=== PATIENT | male | born 1950 ===

== ENCOUNTER 2017-12-02 22:02 | Inpatient (IN) | payer MEDICARE, OTHER ==
[~2017-12-02] VITALS: Ht 177.8 cm; Wt 110.1 kg
[2017-12-02 23:19] VITALS: BP 117/77
[2017-12-02 23:30] VITALS: BP 94/80
[2017-12-02] MEDS ORDERED: ACETAMINOPHEN 500 MG TAB (TYLENOL) PO PRN (23:30)
[2017-12-02] MEDS ORDERED: ONDANSETRON 4 MG/2 ML (SDV) Z0FRAN IVP PRN (23:30)
[2017-12-02 23:45] VITALS: BP 116/91
[2017-12-02] MEDS ORDERED: NS IV 1000 ML 1,000 ML ONE (23:51)
[2017-12-02] MEDS ORDERED: NS (IVPB) 100 ML ONE (23:51)
[2017-12-03] VITALS (28 sets, daily range): BP systolic 80–135; BP diastolic 41–107
[2017-12-03] MEDS: NS IV 1000 ML 1,000 ML IV SCH ×3 (00:06→20:14)
[2017-12-03] MEDS: DILTIAZEM IV FOR DRIP 125 MG in NS (IVPB) 100 ML IV SCH ×2 (00:07→10:43)
[2017-12-03 03:53] LABS: BASOPHILS % (AUTO) 1 % (0-10); EOSINOPHILS # (AUTO) 0.2 10^3/uL (0.0-0.3); EOSINOPHILS % (AUTO) 3 % (0-10); HEMATOCRIT 39 % (40-54); HEMOGLOBIN 13.3 G/DL (13.3-17.7); LYMPHOCYTES # (AUTO) 1.1 X 10^3 (1.0-4.0); LYMPHOCYTES % (AUTO) 21 % (12-44); MEAN CORPUSCULAR HEMOGLOBIN 29 PG (25-34); MEAN CORPUSCULAR HGB CONC 34 G/DL (32-36); MEAN CORPUSCULAR VOLUME 86 FL (80-99); MEAN PLATELET VOLUME 10.8 FL (7.4-10.4); MONOCYTES # (AUTO) 0.7 X 10^3 (0.0-1.0); MONOCYTES % (AUTO) 12 % (0-12); NEUTROPHILS # (AUTO) 3.5 X 10^3 (1.8-7.8); NEUTROPHILS % (AUTO) 63 % (42-75); PLATELET COUNT 258 10^3/uL (130-400); RED BLOOD COUNT 4.54 10^6/uL (4.35-5.85); RED CELL DISTRIBUTION WIDTH 14.5 % (10.0-14.5); WHITE BLOOD COUNT 5.6 10^3/uL (4.3-11.0)
[2017-12-03 04:06] LABS: INR 1.1 (0.8-1.4); PROTHROMBIN TIME PATIENT 13.9 SEC (12.2-14.7)
[2017-12-03 04:15] LABS: BUN/CREATININE RATIO 30; CALCIUM 8.8 MG/DL (8.5-10.1); CARBON DIOXIDE 22 MMOL/L (21-32); CHLORIDE 106 MMOL/L (98-107); CREATININE SERUM 0.86 MG/DL (0.60-1.30); GFR ESTIMATED > 60; GLUCOSE 95 MG/DL (70-105); POTASSIUM 3.8 MMOL/L (3.6-5.0); SODIUM 139 MMOL/L (135-145)
--- NOTE | 2017-12-03 05:57 | Pulmonary Consultation ---
History of Present Illness History of Present Illness Date of Consultation 12/03/17 05:51 Time Seen by Provider: 12:47 Date of Admission History of Present Illness 67yo with hx of Afib RVR recently moved here from [facility]. PT was started on Eliquis about 3 months ago after being diagnosed with Afib however secondary to cost patient has not been taking Eliquis. He is admitted from ED after being diagnosed with afib rvr progressive SOB, and chest discomfort. I am consulted for iCU management. Allergies and Home Medications Allergies Coded Allergies: atorvastatin (Verified Allergy, Severe, Joint Pain, 12/02/17) Home Medications Apixaban 5 Mg Tablet, 5 MG PO BID Prescribed by: LETHA RAY on 12/03/17 1149 Aspirin 81 Mg Tablet.dr, 81 MG PO DAILY, (Reported) Diltiazem HCl 180 Mg Cap.er.24h, 180 MG PO DAILY Prescribed by: BERRY PAGE on 12/04/17 1339 Insulin NPH Human Isophane 100 Unit/1 Ml Vial, 50 UNIT SQ HS, (Reported) Lisinopril/Hydrochlorothiazide 1 Each Tablet, 1 TAB PO BID, (Reported) Metformin HCl 850 Mg Tablet, 850 MG PO TID, (Reported) Sertraline HCl 50 Mg Tablet, 25 MG PO DAILY, (Reported) TAKES 1/2 (50MG) TABLET Simvastatin 40 Mg Tablet, 40 MG PO HS, (Reported) Past Knyozbt-Hadrfz-Ciydps Hx Patient Social History Alcohol Use: Rarely Uses Number of Drinks Today: 1 Alcohol Beverage of Choice: Beer Recreational Drug Use: No Smoking Status: Former Smoker Type Used: Cigarettes Recent Foreign Travel: No Contact w/Someone Who Travel: No Recent Infectious Disease Expo: No Recent Hopitalizations: No Immunizations Up To Date PED Vaccines UTD: No Seasonal Allergies Seasonal Allergies: No Past Medical History Surgeries: Yes (Uvula removal) Respiratory: Yes Sleep Apnea Currently Using CPAP: No Currently Using BIPAP: No Cardiac: Yes Neurological: No Sexually Transmitted Disease: No HIV/AIDS: No Genitourinary: Yes Prostate Problems Gastrointestinal: No Musculoskeletal: Yes Arthritis Endocrine: Yes Are Your Blood Sugars Over 250: No HEENT: No Loss of Vision: Denies Cancer: No Psychosocial: Yes Anxiety Integumentary: No Blood Disorders: No Adverse Reaction/Blood Tranf: No Family Medical History FH: CVA (cerebrovascular accident) 19 FATHER, , Onset:Unknown FH: lupus G8 SISTER, , Onset:Unknown FH: renal cell carcinoma 19 FATHER, , Onset:Unknown Varicose veins G8 BROTHER, Onset:Unknown Review of Systems Time Seen by Provider: 12:54 Sepsis Event Evaluation Height, Weight, BMI Height: 5'10.00" Weight: 253lbs. 5.0oz. 114.438900zq; 36.3 BMI Method: Exam Exam Vital Signs Date Time Temp Pulse Resp B/P (MAP) Pulse Ox O2 Delivery O2 Flow Rate FiO2 12/03/17 05:00 100 7 113/86 (95) Room Air 12/03/17 04:00 113 14 110/72 (85) Room Air 12/03/17 03:45 97.4 12/03/17 03:40 99 Room Air 12/03/17 03:00 109 18 121/74 (90) 94 Room Air 12/03/17 02:00 135 20 80/41 (54) 94 Room Air 12/03/17 01:00 129 12/03/17 01:00 129 20 105/74 (84) 97 Room Air 12/03/17 00:45 140 18 111/85 (94) 96 Room Air 12/03/17 00:30 113 26 100/67 (78) 97 Room Air 12/03/17 00:21 97 Room Air 12/03/17 00:15 115 13 114/93 (100) 97 Room Air 12/03/17 00:11 104 16 116/91 (99) Room Air 12/03/17 00:10 105 12/03/17 00:07 144 12/03/17 00:00 104 16 116/68 (84) 96 Room Air 12/03/17 00:00 97 Room Air 12/02/17 23:45 102 16 116/91 (99) 96 Room Air 12/02/17 23:30 118 11 94/80 (85) 97 Room Air 12/02/17 23:19 98.1 130 17 117/77 (90) 94 Room Air I & O 12/03/17 07:00 Intake Total 150 ml Output Total 545 ml Balance -395 ml Height & Weight Height: 5'10.00" Weight: 253lbs. 5.0oz. 114.649264vp; 36.3 BMI Method: General Appearance: No Apparent Distress, WD/WN HEENT: PERRL/EOMI Neck: Full Range of Motion, Normal Inspection Respiratory: Chest Non Tender, No Accessory Muscle Use, No Respiratory Distress , Decreased Breath Sounds Cardiovascular: Irregularly Irregular Gastrointestinal: normal bowel sounds, non tender Extremity: Normal Capillary Refill Neurologic/Psychiatric: Alert, Oriented x3 Skin: Normal Color, Warm/Dry Results Lab Laboratory Tests 12/03/17 02:55 Assessment/Plan Assessment/Plan Afib RVR -Cardizem gtt -Cardiology is following -Eliquis -Labs and CXR are pending Medical noncompliance -Pt has not been taking his home meds secondary to financial reasons DM -Accu checks ordered ROS hx of UPPP surgery -He is not currently using CPAP -Will do out patient PSG GI/DVT ppx CARLITOS BARTON DO Dec 03, 2017 05:57
[2017-12-03 06:26] LABS: BASOPHILS % (AUTO) 1 % (0-10); EOSINOPHILS # (AUTO) 0.2 10^3/uL (0.0-0.3); EOSINOPHILS % (AUTO) 4 % (0-10); HEMATOCRIT 39 % (40-54); HEMOGLOBIN 13.2 G/DL (13.3-17.7); LYMPHOCYTES # (AUTO) 1.7 X 10^3 (1.0-4.0); LYMPHOCYTES % (AUTO) 30 % (12-44); MEAN CORPUSCULAR HEMOGLOBIN 29 PG (25-34); MEAN CORPUSCULAR HGB CONC 34 G/DL (32-36); MEAN CORPUSCULAR VOLUME 85 FL (80-99); MEAN PLATELET VOLUME 10.3 FL (7.4-10.4); MONOCYTES # (AUTO) 0.7 X 10^3 (0.0-1.0); MONOCYTES % (AUTO) 11 % (0-12); NEUTROPHILS # (AUTO) 3.1 X 10^3 (1.8-7.8); NEUTROPHILS % (AUTO) 54 % (42-75); PLATELET COUNT 261 10^3/uL (130-400); RED BLOOD COUNT 4.54 10^6/uL (4.35-5.85); RED CELL DISTRIBUTION WIDTH 14.5 % (10.0-14.5); WHITE BLOOD COUNT 5.7 10^3/uL (4.3-11.0)
[2017-12-03 06:53] LABS: BUN/CREATININE RATIO 30; CALCIUM 8.8 MG/DL (8.5-10.1); CARBON DIOXIDE 23 MMOL/L (21-32); CHLORIDE 108 MMOL/L (98-107); CREATININE SERUM 0.76 MG/DL (0.60-1.30); GFR ESTIMATED > 60; GLUCOSE 77 MG/DL (70-105); MAGNESIUM 2.1 MG/DL (1.8-2.4); PHOSPHORUS 3.2 MG/DL (2.3-4.7); POTASSIUM 4.1 MMOL/L (3.6-5.0); SODIUM 139 MMOL/L (135-145)
--- NOTE | 2017-12-03 09:07 | Diagnostic Imaging Report ---
INDICATION: Atrial fibrillation. TIME OF EXAM: 06:18 a.m. No prior studies are available for comparison. The heart size is normal. The pulmonary vascularity is unremarkable. The lungs are clear. No infiltrate, effusion or pneumothorax is detected. IMPRESSION: No acute cardiopulmonary process is detected. Dictated by: Dictated on workstation # [id number]
--- NOTE | 2017-12-03 09:07 | Consultation-Cardiology ---
HPI-Cardiology Cardiology Consultation: Date of Consultation 12/03/17 Date of Admission Attending Physician Rose Mary Smith DO Admitting Physician Danii,Local Physician Consulting Physician Dorene PAUL MD HPI: Time Seen by Provider: 09:07 Chief Complaint: Atrial fibrillation with RVR This is a 67-year-old gentleman who has recently moved from [facility] to [facility]. He had an episode of atrial fibrillation a few months ago when he was started on Eliquis, he did not start taking Eliquis due to cost. Presently he was in atrial fibrillation for less than 24 hours and went to sinus rhythm. He presented again with atrial fibrillation and RVR. Complains of chest discomfort, palpitations and being sweaty. Also complained of shortness of breath. He went to [place] ED and was found to be in atrial fibrillation with RVR. He was started on Cardizem drip and Eliquis and transferred to our hospital. When I saw him he was not complaining of any cardiac complaints, however continues to be in atrial fibrillation with controlled ventricular rate. Review of Systems-Cardiology Review of Systems Constitutional: As described under HPI; No As described under HPI, No no symptoms reported, No chills, No fever, No lightheadedness Eyes: No As described under HPI, No no symptoms reported, No blindness, No blurred vision, No contact lenses, No drainage, No decreased acuity, No foreign body sensation, No pain, No vision change Ears/Nose/Throat: No As described under HPI, No no symptoms reported, No chronic hearing loss, No ear discharge, No ear pain, No nasal drainage, No ulcerations Respiratory: No no symptoms reported; As described under HPI; No As described under HPI, No cough, No orthopnea, No shortness of breath, No SOB with excertion Cardiovascular: No no symptoms reported; As described under HPI; No As described under HPI; chest pain; No edema; irregular heart rate; No lightheadedness; palpitations Gastrointestinal: No no symptoms reported, No As described under HPI, No abdomen distended, No abdominal pain, No blood streaked bowels, No constipation , No diarrhea, No nausea, No vomiting, No stool coloration changes Genitourinary: No As described under HPI, No burning, No dysuria, No discharge , No frequency, No flank pain, No hematuria, No urgency Musculoskeletal: No no symptoms reported, No As describe under HPI, No back pain, No gout, No joint pain, No joint swelling, No muscle pain, No muscle stiffness, No neck pain, No other Skin: No no symptoms reported, No As described under HPI, No change in color, No change in hair/nails, No dryness, No lesions, No lumps, No rash, No other, No skin related problems, No ulcerations, No rash on exposed areas, No ulcerations on exposed areas Psychiatric/Neurological: No no symptoms reported, No As described under HPI, No anxiety, No depression, No emotional problems, No headache, No numbness, No pre-existing deficit, No seizure, No tingling, No tremors, No weakness, No other , No focal weakness, No syncope Hematologic: No no symptoms reported, No As described under HPI, No anemia, No blood clots, No easy bleeding, No easy bruising, No swollen glands, No other, No bleeding abnormalities FOP-Uksrwr-Pmripg Hx Patient Social History Alcohol Use: Rarely Uses Recreational Drug Use: No Smoking Status: Former Smoker Type Used: Cigarettes Recent Foreign Travel: No Recent Infectious Disease Expo: No Physical Abuse Screen: No Sexual Abuse: No Past Medical History PMH As described under Assessment. Family Medical History Family History: FH: CVA (cerebrovascular accident) 19 FATHER, , Onset:Unknown FH: lupus G8 SISTER, , Onset:Unknown FH: renal cell carcinoma 19 FATHER, , Onset:Unknown Varicose veins G8 BROTHER, Onset:Unknown Allergies and Home Medications Allergies Coded Allergies: atorvastatin (Verified Allergy, Severe, Joint Pain, 12/02/17) Home Medications Apixaban 5 Mg Tablet, 5 MG PO BID Prescribed by: ROSE MARY SMITH on 12/03/17 1149 Aspirin 81 Mg Tablet.dr, 81 MG PO DAILY, (Reported) Insulin NPH Human Isophane 100 Unit/1 Ml Vial, 50 UNIT SQ HS, (Reported) Lisinopril/Hydrochlorothiazide 1 Each Tablet, 1 TAB PO BID, (Reported) Metformin HCl 850 Mg Tablet, 850 MG PO TID, (Reported) Sertraline HCl 50 Mg Tablet, 25 MG PO DAILY, (Reported) TAKES 1/2 (50MG) TABLET Simvastatin 40 Mg Tablet, 40 MG PO HS, (Reported) Patient Home Medication List Home Medication List Reviewed: Yes Physical Exam-Cardiology Physical Exam Vital Signs/I&O 12/03/17 12/03/17 12/03/17 12/03/17 03:00 03:40 03:45 04:00 Temp 97.4 Pulse 109 113 Resp 18 14 B/P (MAP) 121/74 (90) 110/72 (85) Pulse Ox 94 99 O2 Delivery Room Air Room Air Room Air 12/03/17 12/03/17 12/03/17 12/03/17 05:00 06:00 07:00 08:00 Pulse 100 89 120 Resp 7 13 B/P (MAP) 113/86 (95) 113/77 (89) Pulse Ox 97 O2 Delivery Room Air Room Air Room Air 12/03/17 12/03/17 12/03/17 12/03/17 08:00 09:00 10:43 12:00 Temp 97.9 97.1 Pulse 89 Resp 15 B/P (MAP) 112/99 Pulse Ox 97 97 98 O2 Delivery Room Air Room Air Room Air 12/03/17 12:00 Temp 97.5 Capillary Refill : Constitutional: appears stated age, AAO x 3; No apparent distress; well- developed, well-nourished HEENT: PERRL; No normal ENT inspection, No TMs normal, No pharynx normal, No scleral icterus (R), No scleral icterus (L), No pale conjunctivae (R), No pale conjunctivae (L), No photophobia, No TM abnormal (R), No TM abnormal (L), No pharyngeal erythema, No tonsillar exudate, No other, No discharge, No EOMI; hearing is well preserved; No hard of hearing; oral hygience is good; No ulceration, No xanthelasmas are seen Neck: No non-tender, No full range of motion, No supple, No normal inspection, No carotid bruit, No limited range of motion, No lymphadenopathy (R), No lymphadenopathy (L), No tender lateral, No tender midline, No thyromegaly, No other; carotid pulses are 2 + bilaterally; No with good upstrokes Respiratory: No accessory muscle use, No respiratory distress, No chest tender , No chest expansion is symmetric; chest is bilaterally symmetric; No lungs clear to percussion; lungs clear to auscultation; No crackles, No rhonchi, No rales, No stridor, No wheezing, No pleural rub, No other Cardiovascular: No regular rate-rhythm; irregularly irregular; No extra beats, No parasternal heave is noted, No JVD, No edema, No bradycardia, No tachycardia , No point of maximal impulse, No cardiac thrills are palpable; S1 and S2; No gallop/S3, No gallop/S4, No diastolic murmur, No systolic murmur, No friction rub, No click, No other Gastrointestinal: No tender, No soft, No round, No distended, No pulsatile mass , No organomegaly, No guarding, No rebound, No tenderness, No hernia, No mass, No audible bowel sounds, No abnormal bowel sounds, No abdominal bruits, No spleenomegaly, No other Rectal: deferred Extremities: No normal range of motion, No non-tender, No normal inspection, No pedal edema, No calf tenderness, No normal capillary refill, No pelvis stable , No calf tenderness, No inflammation, No pedal edema, No slow capillary refill , No swelling, No other, No abrasion, No clubbing, No cyanosis, No ecchymosis, No laceration, No no lower extremity edema bilateral, No significant edema, No tenderness, No wound Neurologic/Psychiatric: no motor/sensory deficits, alert, normal mood/affect, oriented x 3, power is 5/5 both on sides Skin: No normal color, No warm/dry, No cyanosis, No cool, No diaphoresis, No damp, No ecchymosis, No jaundice, No mottled, No pallor, No rash, No tattoos/ piercings, No ulcerations, No rash on exposed areas, No ulcerations on exposed areas, No other Data Review Labs Laboratory Tests 12/03/17 02:55: White Blood Count 5.6, Red Blood Count 4.54, Hemoglobin 13.3, Hematocrit 39L, Mean Corpuscular Volume 86, Mean Corpuscular Hemoglobin 29, Mean Corpuscular Hemoglobin Concent 34, Red Cell Distribution Width 14.5, Platelet Count 258, Mean Platelet Volume 10.8H, Neutrophils (%) (Auto) 63, Lymphocytes (%) (Auto) 21 , Monocytes (%) (Auto) 12, Eosinophils (%) (Auto) 3, Basophils (%) (Auto) 1, Neutrophils # (Auto) 3.5, Lymphocytes # (Auto) 1.1, Monocytes # (Auto) 0.7, Eosinophils # (Auto) 0.2, Basophils # (Auto) 0.0, Prothrombin Time 13.9, INR Comment 1.1, Sodium Level 139, Potassium Level 3.8, Chloride Level 106, Carbon Dioxide Level 22, Anion Gap 11, Blood Urea Nitrogen 26H, Creatinine 0.86, Estimat Glomerular Filtration Rate > 60, BUN/Creatinine Ratio 30, Glucose Level 95, Calcium Level 8.8 12/03/17 06:14: White Blood Count 5.7, Red Blood Count 4.54, Hemoglobin 13.2L, Hematocrit 39L, Mean Corpuscular Volume 85, Mean Corpuscular Hemoglobin 29, Mean Corpuscular Hemoglobin Concent 34, Red Cell Distribution Width 14.5, Platelet Count 261, Mean Platelet Volume 10.3, Neutrophils (%) (Auto) 54, Lymphocytes (%) (Auto) 30 , Monocytes (%) (Auto) 11, Eosinophils (%) (Auto) 4, Basophils (%) (Auto) 1, Neutrophils # (Auto) 3.1, Lymphocytes # (Auto) 1.7, Monocytes # (Auto) 0.7, Eosinophils # (Auto) 0.2, Basophils # (Auto) 0.0, Sodium Level 139, Potassium Level 4.1, Chloride Level 108H, Carbon Dioxide Level 23, Anion Gap 8, Blood Urea Nitrogen 23H, Creatinine 0.76, Estimat Glomerular Filtration Rate > 60, BUN /Creatinine Ratio 30, Glucose Level 77, Calcium Level 8.8, Phosphorus Level 3.2 , Magnesium Level 2.1 12/03/17 11:35: Glucometer 94 ECG Impression ECG Initial ECG Impression: Atrial Fibrillation w/RVR A/P-Cardiology Assessment/Admission Diagnosis Atrial fibrillation with rapid ventricular rate, Hypertension, Diabetes Plan I discussed at length the pathophysiology of atrial fibrillation, stroke prevention, rate versus rhythm control. We will perform transesophageal echocardiogram and cardioversion this afternoon. I discussed all the risks and complication associated with transesophageal echocardiogram including esophageal damage with transesophageal echocardiogram and risk of stroke with cardioversion. The patient accepted all risks and we will proceed with the procedure later this afternoon. Patient will continue on Cardizem and Eliquis. I also discussed that if the patient has recurrent atrial fibrillation, he'll be a candidate of antiarrhythmic therapy. We'll also schedule stress test and a regular echocardiogram when he is in sinus rhythm. Ablation was briefly discussed. Diabetes: Continue outpatient medical therapy. Hypertension: Continue Cardizem. Hyperlipidemia: Continue statin therapy. Thank you for your consultation. Please call me if you have any questions. Lois Paul MD, FACP, FACC, FSCAI, FHRS, CCDS Interventional Cardiology Cardiac Electrophysiology Vascular Medicine and Endovascular Interventions Clinical Quality Measures DVT/VTE Risk/Contraindication: Risk Factor Score Per Nursin RFS Level Per Nursing on Admit: 2=Moderate Dorene PAUL MD Dec 03, 2017 9:07 am
[2017-12-03] MEDS ORDERED: ASPI-983 PO (09:09)
[2017-12-03] MEDS ORDERED: METF-398 PO (09:09)
[2017-12-03] MEDS ORDERED: INSN1U SQ (09:09)
[2017-12-03] MEDS ORDERED: LISI1TAB10 PO (09:09)
[2017-12-03] MEDS ORDERED: SERT50TA9 PO (09:09)
[2017-12-03] MEDS ORDERED: SIMV40TA4 PO (09:09)
[2017-12-03] MEDS: APIXABAN 5 MG (ELIQUIS) TABLET PO SCH ×2 (09:28→20:13)
[2017-12-03] MEDS ORDERED: APIX5TAB PO (11:49)
--- NOTE | 2017-12-03 12:00 | History & Physical-Hospitalist ---
AVINASH DURAN MEDICAL STUDENT 12/03/17 1200: History of Present Illness HPI/Chief Complaint Pt is a 67 year old male with a history of afib without outpatient control or anticoagulation due to financial concerns admitted for Afib with RVR. He checks his blood pressure and pulse regularly. On 12/01, he noted that his pulse was 117. He was feeling sweaty, dizzy, short of breath, weak, and was having palpitations at the time. He thought it would go away on its own, so he stayed at home for the day. He continued to check his pulse and it got as high as 149. He came presented to [place] ED on 12/02 and was found to be in Afib with RVR. He was admitted to [facility]. In the ED, he was started on a Cardizem drip and Eliquis. He feels better since being admitted, but still has an irregular rhythm. Source: patient Exam Limitations: no limitations Date Seen 12/03/17 Time Seen by Provider: 08:40 Attending Physician Rose Mary Smith DO PCP No,Local Physician Referring Physician Date of Admission Dec 02, 2017 at 23:16 Home Medications & Allergies Home Medications Reviewed patient Home Medication Reconciliation performed by pharmacy medication reconciliations auto body technician and/or nursing. Patients Allergies have been reviewed. Allergies Allergies Coded Allergies atorvastatin (Verified Allergy, Severe, Joint Pain, 12/02/17) Past Vhqzsvm-Sixvdf-Kkmjsx Hx Past Med/Social Hx: Reviewed Nursing Past Med/Soc Hx Patient Social History Marrital Status: Living Status: Lives with , recently moved from [place] Employed/Student: retired (Worked in maintenance) Alcohol Use: Rarely Uses Number of Drinks Today: 1 Alcohol Beverage of Choice: Beer Recreational Drug Use: No Smoking Status: Former Smoker Type Used: Cigarettes Physical Abuse Screen: No Sexual Abuse: No Recent Foreign Travel: No Contact w/other who traveled: No Recent Hopitalizations: No Recent Infectious Disease Expo: No Immunizations Up To Date Pediatric: No Seasonal Allergies Seasonal Allergies: No Past Medical History Currently Using CPAP: No Currently Using BIPAP: No Sexually Transmitted Disease: No HIV/AIDS: No Genitourinary: Prostate Problems Musculoskeletal: Arthritis Are Your Blood Sugars Over 250: No Loss of Vision: Denies Psychosocial: Anxiety History of Blood Disorders: No Adverse Reaction to Blood Paul: No Family History FH: CVA (cerebrovascular accident) 19 FATHER, , Onset:Unknown FH: lupus G8 SISTER, , Onset:Unknown FH: renal cell carcinoma 19 FATHER, , Onset:Unknown Varicose veins G8 BROTHER, Onset:Unknown Review of Systems Constitutional: No chills, No fever Respiratory: No cough Cardiovascular: No chest pain Gastrointestinal: No constipation, No diarrhea Genitourinary: no symptoms reported Musculoskeletal: no symptoms reported Physical Exam Physical Exam Vital Signs Vital Signs - First Documented 12/02/17 23:19 Temp 98.1 Pulse 130 Resp 17 B/P (MAP) 117/77 (90) Pulse Ox 94 O2 Delivery Room Air Capillary Refill : Height, Weight, BMI Height: 5'10.00" Weight: 253lbs. 5.0oz. 114.938980ox; 36.3 BMI Method: General Appearance: No Apparent Distress, WD/WN Respiratory: Chest Non Tender, Lungs Clear, Normal Breath Sounds, No Accessory Muscle Use Cardiovascular: No Edema, No Murmur, Irregularly Irregular Gastrointestinal: Normal Bowel Sounds, Non Tender, Soft Neurologic/Psychiatric: Alert, Oriented x3 Skin: Normal Color, Warm/Dry Results Results/Procedures Labs Laboratory Tests 12/03/17 02:55 12/03/17 06:14 Patient resulted labs reviewed. Assessment/Plan Admission Diagnosis Atrial fibrillation with RVR Admission Status: Observation Assessment and Plan 67 year old with Atrial fibrillation without outpatient management due to financial concerns admitted for afib with RVR. 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 Time Seen by Provider: 10:30 Past Emzqshc-Qpidkv-Jdmvrr Hx Past Med/Social Hx: Reviewed Nursing Past Med/Soc Hx, Reviewed and Corrections made Patient Social History Marrital Status: Employed/Student: retired (Worked in maintenance) Alcohol Beverage of Choice: Beer Smoking Status: Former Smoker Type Used: Cigarettes Past Medical History Surgeries: Tonsillectomy Respiratory: Sleep Apnea Currently Using CPAP: No Currently Using BIPAP: No Cardiac: Atrial Fibrillation, High Cholesterol, Hypertension Musculoskeletal: Arthritis Endocrine: Diabetes, Insulin dep Psychosocial: Anxiety Family History FH: CVA (cerebrovascular accident) 19 FATHER, , Onset:Unknown FH: lupus G8 SISTER, , Onset:Unknown FH: renal cell carcinoma 19 FATHER, , Onset:Unknown Varicose veins G8 BROTHER, Onset:Unknown Diabetes Review of Systems Respiratory: short of breath Cardiovascular: palpitations Genitourinary: no symptoms reported Musculoskeletal: no symptoms reported Psychiatric/Neurological: Anxiety All Other Systems Reviewed Negative Unless Noted: Yes Physical Exam Physical Exam General Appearance: No Apparent Distress, WD/WN HEENT: PERRL/EOMI, TMs Normal, Normal ENT Inspection, Pharynx Normal Respiratory: Chest Non Tender, Lungs Clear, Normal Breath Sounds, No Accessory Muscle Use, No Respiratory Distress Cardiovascular: No Edema, No Gallop, No JVD, No Murmur, Normal Peripheral Pulses, Irregularly Irregular Neurologic/Psychiatric: Alert, Oriented x3, No Motor/Sensory Deficits, Normal Mood/Affect Assessment/Plan Admission Diagnosis AF w/RVR Admission Status: Inpatient Order (span 2 midnights) Reason for Inpatient Admission: Cardioversion and monitoring due to recurrent AF w/RVR since 08/03 Supervisory Addendum Participated in pt care: history Personally performed: exam E&M service: agree Results interpretation: agree Diagnosis/Problems Diagnosis/Problems (1) Atrial fibrillation with RVR Status: Acute (2) Obstructive sleep apnea Status: Chronic (3) 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
[2017-12-03] MEDS ORDERED: NS IV 500 ML 500 ML ONE (12:20)
[2017-12-03] MEDS ORDERED: LIDOCAINE 2% VISCOUS 15 ML UDC ONE (14:25)
[2017-12-03] MEDS ORDERED: MIDAZOLAM 2 MG/2 ML (VERSED) VIAL ONE (14:39)
[2017-12-03] MEDS ORDERED: AMIODARONE 450 MG/9 ML (CORDARONE) VIAL IV ONE (14:57)
[2017-12-03] MEDS ORDERED: D5W IV SOLUTION (EXCEL) 250 ML IV ONE (14:57)
--- NOTE | 2017-12-03 15:14 | Cardioversion ---
Cardioversion PROCEDURE PHYSICIAN: Lois Paul MD DATE OF PROCEDURE: 12/03/17 DIRECT EXTERNAL ELECTRICAL CARDIOVERSION: Indications: Atrial Fibrillation with rapid ventricular rate Preoperative diagnoses: Atrial Fibrillation with rapid ventricular rate Postoperative diagnosis: Unsuccessful electrical cardioversion History: This is a 67-year-old gentleman with diabetes and hypertension. He presents with atrial fibrillation with rapid ventricular rate. Transesophageal echocardiogram assisted cardioversion is recommended. Anesthesia: By Anesthesia services Complications: None Specimen: None Contrast: 0 Flouroscopy: none Procedure Details: The patient was brought the supervisor laboratory animal facility after informed consent was taken, all the risks and complications were explained including the risk of stroke. Transesophageal echocardiogram did not reveal any thrombus in the left atrium or left atrial appendage. Electrical cardioversion was carried out with anesthesia support with propofol. three 200 joules of synchronized shocks were delivered through external patches, however, the patient continued to be in atrial fibrillation with rapid ventricular rate. The patient tolerated the procedure well. Conclusions: 1.Unsuccessful Cardioversion. 2.Continue oral anticoagulation and rate controlling agent. 3.start amiodarone bolus and infusion, repeat cardioversion in the morning. Nothing by mouth after midnight. Lois Paul MD, FHRS, CCDS Cardiac Electrophysiology Dorene PAUL MD Dec 03, 2017 3:14 pm
[2017-12-03] MEDS ORDERED: proPOfol 200 MG/20 ML (DIPRIVAN) VIAL IV ONE (15:17)
--- NOTE | 2017-12-03 15:18 | Anesthesia-Procedure Note ---
Procedures/Interventions Procedure Start/Stop/Diagnosis Date of Procedure: Dec 03, 2017 Start Time: 14:44 Stop Time: 15:04 JASVIR/Cardioversion Anesthesia Type: MAC ASA Class: 3 Medications Versed 2mg and Propofol 150 mg Monitors and Equipment: BP Cuff - Left, Continuous EKG, End Tidal CO2, IV (20g right FA) MARLEY SAMANIEGO CRNA Dec 03, 2017 15:18
[2017-12-03] MEDS: AMIODARONE INJECTION 450 MG in D5W IV SOLUTION (EXCEL) 250 ML IV SCH ×2 (16:07→20:28)
[2017-12-03] MEDS: metFORMIN 850 MG (GLUCOPHAGE) TAB PO SCH (20:13)
[2017-12-03] MEDS ORDERED: diphenhydrAMINE 25 MG TAB (BENADRYL) PO PRN (21:00)
[2017-12-04] VITALS (11 sets, daily range): BP systolic 98–135; BP diastolic 65–101
[2017-12-04] MEDS: DILTIAZEM IV FOR DRIP 125 MG in NS (IVPB) 100 ML IV SCH ×2 (00:10→02:04)
[2017-12-04 04:14] LABS: BASOPHILS # (AUTO) 0.1 10^3/uL (0.0-0.1); BASOPHILS % (AUTO) 1 % (0-10); EOSINOPHILS # (AUTO) 0.2 10^3/uL (0.0-0.3); EOSINOPHILS % (AUTO) 5 % (0-10); HEMATOCRIT 36 % (40-54); HEMOGLOBIN 12.5 G/DL (13.3-17.7); LYMPHOCYTES # (AUTO) 1.7 X 10^3 (1.0-4.0); LYMPHOCYTES % (AUTO) 35 % (12-44); MEAN CORPUSCULAR HEMOGLOBIN 30 PG (25-34); MEAN CORPUSCULAR HGB CONC 35 G/DL (32-36); MEAN CORPUSCULAR VOLUME 85 FL (80-99); MEAN PLATELET VOLUME 10.8 FL (7.4-10.4); MONOCYTES # (AUTO) 0.6 X 10^3 (0.0-1.0); MONOCYTES % (AUTO) 13 % (0-12); NEUTROPHILS # (AUTO) 2.2 X 10^3 (1.8-7.8); NEUTROPHILS % (AUTO) 46 % (42-75); PLATELET COUNT 218 10^3/uL (130-400); RED CELL DISTRIBUTION WIDTH 14.1 % (10.0-14.5); WHITE BLOOD COUNT 4.7 10^3/uL (4.3-11.0)
[2017-12-04 04:35] LABS: BUN/CREATININE RATIO 19; CALCIUM 8.7 MG/DL (8.5-10.1); CARBON DIOXIDE 23 MMOL/L (21-32); CHLORIDE 108 MMOL/L (98-107); CREATININE SERUM 0.72 MG/DL (0.60-1.30); GFR ESTIMATED > 60; GLUCOSE 102 MG/DL (70-105); MAGNESIUM 1.8 MG/DL (1.8-2.4); POTASSIUM 4.2 MMOL/L (3.6-5.0); SODIUM 139 MMOL/L (135-145)
[2017-12-04] MEDS: NS IV 1000 ML 1,000 ML IV SCH (06:08)
[2017-12-04] MEDS: metFORMIN 850 MG (GLUCOPHAGE) TAB PO SCH ×2 (06:08→12:52)
--- NOTE | 2017-12-04 06:23 | Pulmonary Progress Note ---
Sepsis Event Evaluation Height, Weight, BMI Height: 5'10.00" Weight: 253lbs. 5.0oz. 114.078603hg; 36.3 BMI Method: Exam Exam Vital Signs Date Time Temp Pulse Resp B/P (MAP) Pulse Ox O2 Delivery O2 Flow Rate FiO2 12/04/17 04:00 98 Room Air 12/04/17 04:00 77 36 118/80 (93) Room Air 12/04/17 04:00 97.4 12/04/17 03:00 75 13 98/65 (76) Room Air 12/04/17 02:04 76 127/85 12/04/17 02:00 79 13 117/65 (82) Room Air 12/04/17 01:00 76 12 100/65 (77) Room Air 12/04/17 01:00 76 12/04/17 00:10 92 124/94 12/04/17 00:00 80 13 124/94 (104) Room Air 12/04/17 00:00 96 Room Air 12/04/17 00:00 97.7 76 18 124/94 (104) Room Air 12/03/17 23:00 92 13 110/82 (91) 96 Room Air 12/03/17 22:00 89 18 110/80 (90) 97 Room Air 12/03/17 21:00 96 Room Air 12/03/17 21:00 96 17 112/81 (91) 95 Room Air 12/03/17 20:00 96 Room Air 12/03/17 20:00 97.6 92 18 127/90 (102) Room Air 12/03/17 19:00 111 12/03/17 19:00 111 10 133/74 (93) Room Air 12/03/17 18:00 94 18 132/79 (96) Room Air 12/03/17 17:00 87 19 135/94 (108) Room Air 12/03/17 16:00 85 12 121/86 (98) Room Air 12/03/17 16:00 98 Room Air 12/03/17 15:00 131 18 117/81 (93) 93 Room Air 12/03/17 14:00 93 27 128/89 (102) Room Air 12/03/17 13:00 83 12/03/17 13:00 91 18 116/107 (110) Room Air 12/03/17 12:00 97.5 12/03/17 12:00 101 30 104/87 (93) Room Air 12/03/17 12:00 98 Room Air 12/03/17 11:00 75 16 121/71 (88) Room Air 12/03/17 10:43 97.1 89 15 112/99 97 Room Air 12/03/17 10:00 80 28 112/99 (103) Room Air 12/03/17 09:00 97 Room Air 12/03/17 09:00 96 10 104/79 (87) Room Air 12/03/17 08:00 97.9 12/03/17 08:00 98 21 102/92 (95) 94 Room Air 12/03/17 08:00 97 Room Air 12/03/17 07:00 109 14 101/73 (82) Room Air 12/03/17 07:00 120 I & O 12/04/17 07:00 Intake Total 1425 ml Output Total 600 ml Balance 825 ml Height & Weight Height: 5'10.00" Weight: 253lbs. 5.0oz. 114.319171bu; 36.3 BMI Method: General Appearance: No Apparent Distress, WD/WN HEENT: PERRL/EOMI, TMs Normal, Normal ENT Inspection, Pharynx Normal Respiratory: Chest Non Tender, Lungs Clear, Normal Breath Sounds, No Accessory Muscle Use, No Respiratory Distress Cardiovascular: No Edema, No Gallop, No JVD, No Murmur, Normal Peripheral Pulses, Irregularly Irregular Neurologic/Psychiatric: Alert, Oriented x3, No Motor/Sensory Deficits, Normal Mood/Affect Skin: Normal Color, Warm/Dry Results Lab Laboratory Tests 12/03/17 02:55 12/03/17 06:14 12/04/17 03:40 Assessment/Plan Assessment/Plan Afib RVR s/p cardioversion -Plan is to repeat today -Amiodarone Gtt -Cardizem gtt -Cardiology is following -Eliquis -Labs and CXR are pending Medical noncompliance -Pt has not been taking his home meds secondary to financial reasons DM -Accu checks ordered ROS hx of UPPP surgery -He is not currently using CPAP -Will do out patient PSG GI/DVT ppx CARLITOS BARTON DO Dec 04, 2017 06:23
[2017-12-04] MEDS ORDERED: NS IV 500 ML 500 ML ONE (07:57)
--- NOTE | 2017-12-04 08:08 | Diagnostic Imaging Report ---
PATIENT HISTORY: Atrial fibrillation. TECHNIQUE: Single frontal view of the chest COMPARISON: 12/03/2017 FINDINGS: Lung volumes are normal. No focal consolidation is seen. There is no pleural effusion or pneumothorax. The cardiac silhouette is normal in size. There is mild central vascular congestion. IMPRESSION: Mild central basilar congestion with no acute pulmonary abnormality seen. Dictated by: Dictated on workstation # [id number]
[2017-12-04] MEDS ORDERED: ASPIRIN E.C. 81 MG (ECOTRIN) TAB PO SCH (09:00)
[2017-12-04] MEDS ORDERED: SERTRALINE 50 MG (ZOLOFT) TABLET PO SCH (09:00)
[2017-12-04] MEDS: AMIODARONE INJECTION 450 MG in D5W IV SOLUTION (EXCEL) 250 ML IV SCH (09:04)
--- NOTE | 2017-12-04 09:14 | Progress Note-Hospitalist ---
AVINASH DURAN MEDICAL STUDENT 12/04/17 0914: Subjective HPI/CC On Admission Date Seen by Provider: Dec 04, 2017 Time Seen by Provider: 07:50 Patient was admitted to [facility] and due to risk factors he was in need of Cardiology referral so he was transferred to [facility] on my service. Subjective/Events-last exam Pt had attempted cardioversion yesterday that was unsuccessful with plan to attempt again today. No acute events overnight. Pt states he is constipated with no BM since Sunday and would like bowel regimen. No difficulty urinating. No more symptoms that he had at initial presentation - diaphoresis, dizziness, weakness, etc. 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 Focused Exam Respiratory: Chest Non Tender, Lungs Clear, Normal Breath Sounds, No Accessory Muscle Use, No Respiratory Distress Cardiovascular: No Edema, No Murmur, Irregularly Irregular Skin: normal color, warm/dry Objective Exam Vital Signs Vital Signs Date Time Temp Pulse Resp B/P (MAP) Pulse Ox O2 Delivery O2 Flow Rate FiO2 12/04/17 07:00 94 12/04/17 06:00 11 123/94 (104) Room Air 12/04/17 04:00 98 12/04/17 04:00 97.4 Capillary Refill : General Appearance: No Apparent Distress, WD/WN Results/Procedures Lab Laboratory Tests 12/04/17 03:40 Patient resulted labs reviewed. Assessment/Plan Assessment and Plan Assess & Plan/Chief Complaint 67 year old with Atrial fibrillation without outpatient management due to financial concerns admitted for afib with RVR. Atrial Fibrillation -Now on amiodarone gtt and cardizem gtt with rate around 100 -Eliquis for anticoagulation -Plan for cardioversion again today. If failure, will use rate control outpatient with anticoagulation. 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 fib at bedside Awaiting cardioversion Review of Systems General: Fatigue Objective Exam General Appearance: No Apparent Distress, WD/WN, Chronically ill, Obese Cardiovascular: No Edema, No Gallop, Irregularly Irregular Neurologic/Psychiatric: Alert, Oriented x3, No Motor/Sensory Deficits, Normal Mood/Affect Assessment/Plan Supervisory Addendum Participated in pt care: history Personally performed: exam E&M service: agree Results interpretation: agree Notes: I personally have seen and evaluated the patient and performed the physical exam. I agree with the documented assessment and plan. 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
[2017-12-04] MEDS ORDERED: POLYETHYLENE GLYCOL 17 GM (MIRALAX) PACK PO SCH (09:30)
--- NOTE | 2017-12-04 10:17 | Cardiology Progress Note ---
Cardiology SOAP Progress Note Subjective: No cardiac symptoms. Still in atrial fibrillation with heart rates occasionally over 100 BPM. Objective: I&O/Vital Signs Weight (Pounds): 242 Weight (Ounces): 12.0 Weight (Calculated Kilograms): 110.846287 Constitutional: appears stated age, AAO x 3; No apparent distress; well- developed, well-nourished Respiratory: No accessory muscle use, No respiratory distress, No chest tender , No chest expansion is symmetric; chest is bilaterally symmetric; No lungs clear to percussion; lungs clear to auscultation; No crackles, No rhonchi, No rales, No stridor, No wheezing, No pleural rub, No other Cardiovascular: No regular rate-rhythm; irregularly irregular; No extra beats, No parasternal heave is noted, No JVD, No edema, No bradycardia, No tachycardia , No point of maximal impulse, No cardiac thrills are palpable; S1 and S2; No gallop/S3, No gallop/S4, No diastolic murmur, No systolic murmur, No friction rub, No click, No other Gastrointestional: No tender, No soft, No round, No distended, No pulsatile mass, No organomegaly, No guarding, No rebound, No tenderness, No hernia, No mass, No audible bowel sounds, No abnormal bowel sounds, No abdominal bruits, No spleenomegaly, No other Extremities: No normal range of motion, No non-tender, No normal inspection, No pedal edema, No calf tenderness, No normal capillary refill, No pelvis stable , No calf tenderness, No inflammation, No pedal edema, No slow capillary refill , No swelling, No other, No abrasion, No clubbing, No cyanosis, No ecchymosis, No laceration, No no lower extremity edema bilateral, No significant edema, No tenderness, No wound Neurologic/Psychiatric: no motor/sensory deficits, alert, normal mood/affect, oriented x 3, power is 5/5 both on sides Skin: normal color, warm/dry Results/Procedures: Labs Laboratory Tests 12/04/17 08:43: Glucometer 127H A/P: Assessment/Dx: Atrial fibrillation with rapid ventricular rate, Hypertension, Diabetes Plan: Failed electrical cardioversion yesterday. Transesophageal echocardiogram did not show any evidence of left atrial or left atrial appendage thrombus. Bolus amiodarone was given. IV amiodarone was continued overnight. Patient was also on Cardizem and Eliquis. Repeat electrical cardioversion today. CHADSVASC atleast 3 for age, DM and HTN. Oral anticoagulation is superior to aspirin for stroke prevention. I also discussed that if the patient has recurrent atrial fibrillation, he'll be a candidate of antiarrhythmic therapy. We'll also schedule stress test and a regular echocardiogram when he is in sinus rhythm. Ablation was briefly discussed. Diabetes: Continue outpatient medical therapy. Hypertension: Continue Cardizem. Hyperlipidemia: Continue simvastatin. Aortic atheroma: Aggressive lipid lowering is recommended. Continue simvastatin 40 mg daily. Thank you for your consultation. Please call me if you have any questions. Lois Paul MD, FACP, FACC, FSCAI, FHRS, CCDS Interventional Cardiology Cardiac Electrophysiology Vascular Medicine and Endovascular Interventions Dorene PAUL MD Dec 04, 2017 10:17
[2017-12-04] MEDS ORDERED: proPOfol 200 MG/20 ML (DIPRIVAN) VIAL IV ONE (10:33)
--- NOTE | 2017-12-04 11:14 | Anesthesia-Procedure Note ---
Procedures/Interventions Procedure Start/Stop/Diagnosis Date of Procedure: Dec 04, 2017 Start Time: 10:40 Referring Physician: Beverly Preprocedural Diagnosis: A Fib with RVR Brief History Call to ICU for repeat cardioversion for Atrial Fibrillation. ASA 3 Brief hx obtained. NPO status verified. 02 per NC at 4lpm. Propofol boluses for a total of 90 mg without complication. VSS Pt remained SV. Report to RN Stop Time: 10:50 Postprocedural Diagnosis: A Fib with RVR PATRICIO TORRES CRNA Dec 04, 2017 11:14
[2017-12-04] MEDS ORDERED: DILTIAZEM 180 MG (CARDIZEM CD) CAP PO SCH (11:30)
[2017-12-04] MEDS: APIXABAN 5 MG (ELIQUIS) TABLET PO SCH (11:40)
--- NOTE | 2017-12-04 12:00 | Cardioversion ---
Cardioversion PROCEDURE PHYSICIAN: Lois Paul MD DATE OF PROCEDURE: 12/04/17 DIRECT EXTERNAL ELECTRICAL CARDIOVERSION: Indications: Atrial Fibrillation with rapid ventricular rate Preoperative diagnoses: Atrial Fibrillation with rapid ventricular rate Postoperative diagnosis: Sinus rhythm, Successful Electrical Cardioversion History: 67-year-old gentleman with history of diabetes and hypertension. Presented with atrial fibrillation with rapid ventricular rate. Transesophageal echocardiogram and cardioversion attempted yesterday however patient did not convert to sinus rhythm. Transesophageal echocardiogram did not show any left atrial or left atrial appendage thrombus. Patient has been started on Eliquis therapy twice a day. He was started on amiodarone bolus and infusion overnight and repeat cardioversion is scheduled today. 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 Electrical cardioversion was carried out with anesthesia support with propofol. 200 joules of synchronized shock was delivered through external patches which promptly restored sinus rhythm. The patient tolerated the procedure well. Conclusions: 1.Successful Cardioversion. 2.Continue oral anticoagulation and rate controlling agent. 3.Follow up in office in 2 weeks. Lois Paul MD, RS, CCDS Cardiac Electrophysiology Dorene PAUL MD Dec 04, 2017 12:00 pm
[2017-12-04] MEDS ORDERED: DILT180C90 PO (13:39)
[2017-12-04] MEDS ORDERED: SENNA W/DOCUSATE (SENOKOT S) TABLET PO ONE (21:00)
--- NOTE | 2017-12-07 11:58 | Physician Query-Final Dx ---
FELIPE VALIENTE 12/07/17 1158: Final Diagnosis Give Final Diagnosis Please give Final Diagnosis LETHA RAY DO 12/09/172039: Final Diagnosis Give Final Diagnosis a fib with rvr FELIPE VALIENTE Dec 07, 2017 11:58 LETHA RAY DO Dec 09, 2017 20:40
== END 2017-12-04 14:32 | disposition home or self-care (01) | DRG 310 ==
LOC: ICU 23:16
PROVIDERS: ADMIT Internal Medicine; ATTEND Internal Medicine
PROC: 5A2204Z Restoration of Cardiac Rhythm, Single (ICD-10-PCS; principal; 2017-12-03)
PROC: 5A2204Z Restoration of Cardiac Rhythm, Single (ICD-10-PCS; 2017-12-04)
DX: I48.0 Paroxysmal atrial fibrillation (principal); G47.33 Obstructive sleep apnea (adult) (pediatric); E11.9 Type 2 diabetes mellitus without complications; E78.2 Mixed hyperlipidemia; F41.9 Anxiety disorder, unspecified; N42.9 Disorder of prostate, unspecified; M19.91 Primary osteoarthritis, unspecified site; K59.01 Slow transit constipation; I70.0 Atherosclerosis of aorta; Z87.891 Personal history of nicotine dependence; Z91.120 Patient's intentional underdosing of medication regimen due to financial hardship
CPT/HCPCS: 36415; 71045; 80048; 82962; 83735; 84100; 85025; 85610; 93005; 93312; 93320; 93325

== ENCOUNTER 2018-05-09 07:42 | Day surgery (SDC) | payer MEDICARE, OTHER ==
[~2018-05-09] VITALS: Ht 177.8 cm; Wt 113.4 kg
[~2018-05-09 07:42] MED LIST: APIX5TAB PO; ASPI-983 PO; DILT180C90 PO; INSN1U SQ; LIDOCAINE 1% INJ 20 ML 20 ML VIAL ONE; LISI1TAB10 PO; METF-398 PO; SERT50TA9 PO; SIMV40TA4 PO
[2018-05-09 07:56] VITALS: BP 128/77
[2018-05-09] MEDS ORDERED: LIDOCAINE 1% INJ 20 ML 20 ML VIAL ONE (08:38)
[2018-05-09 09:55] VITALS: BP 130/78
[2018-05-09] MEDS ORDERED: LIDOCAINE 1% INJ 20 ML 20 ML VIAL INJ ONE (10:15)
--- NOTE | 2018-05-09 22:01 | Implantation of Loop Monitor ---
Implant of Loop Monitior PROCEDURE PHYSICIAN: Lois Paul MD IMPLANTATION OF LOOP MONITOR REPORT DATE OF PROCEDURE: 05/09/18 ATTENDING PHYSICIAN: Dr. Franco Paul. PERFORMING PHYSICIAN: Dr. Franco Paul. INDICATION: Long-term surveillance of atrial fibrillation PREOP DIAGNOSIS: Long-term surveillance of atrial fibrillation POSTOP DIAGNOSIS: Atrial fibrillation, s/p implantation of loop recorder. PROCEDURE DETAILS: The patient is a 68 male with history of paroxysmal atrial fibrillation requiring long-term surveillance. Therefore implantable loop recorder was discussed and agreed with the patient. Informed consent was taken. All risks and complications were discussed at length. The patient was draped and prepped in the usual sterile fashion. Local anesthesia was lidocaine, which was given in the substernal area close to the 4th intercostal space. A [employer] Loop monitor was implanted according to the protocol. Steri-Strips were placed at the end of the procedure. There were no complications and the patient tolerated the procedure well. The device was interrogated with a voltage of 0.78mV. ANESTHESIA: Local anesthesia with lidocaine. COMPLICATIONS: None CONTRAST/FLUOROSCOPY: None CONCLUSION: 1. Successful implantation of loop monitor for intermediate manager surveillance of PAF. 2. No complication and the patient tolerated the procedure well. Lois Paul MD, [facility] Cardiac Electrophysiology Dorene PAUL MD May 09, 2018 22:01
== END 2018-05-09 10:19 | disposition home or self-care (01) ==
LOC: CATH 07:42
PROVIDERS: ATTEND Internal Medicine Interventional Cardiology
DX: I48.0 Paroxysmal atrial fibrillation (principal); I10 Essential (primary) hypertension; E78.5 Hyperlipidemia, unspecified; E11.9 Type 2 diabetes mellitus without complications; G47.33 Obstructive sleep apnea (adult) (pediatric); R53.83 Other fatigue; Z79.01 Long term (current) use of anticoagulants; Z79.4 Long term (current) use of insulin; Z79.899 Other long term (current) drug therapy; Z87.891 Personal history of nicotine dependence
CPT/HCPCS: 33285; 93005

== ENCOUNTER 2018-05-09 10:00 | Outpatient (RCR) | payer MEDICARE, OTHER ==
[~2018-05-09 10:00] MED LIST changes: -LIDOCAINE 1% INJ 20 ML 20 ML VIAL ONE
== END 2018-07-14 | disposition home or self-care (01) ==
LOC: CARD 10:00
PROVIDERS: ATTEND Internal Medicine Interventional Cardiology
DX: I48.1 Persistent atrial fibrillation (principal)
CPT/HCPCS: 93270

== ENCOUNTER 2018-09-16 11:05 | Outpatient (RCR) | payer MEDICARE, OTHER | END 2018-11-18 | disposition home or self-care (01) | PROVIDERS: ATTEND Internal Medicine | DX: M54.5 Low back pain (principal) ==

== ENCOUNTER → 2018-11-07 | Outpatient (CLI) | payer MEDICARE, OTHER ==
[~2018-11-07] VITALS: Ht 177.8 cm; Wt 115.2 kg
[~2018-11-07] MED LIST changes: +CATHETER FLUSH 10 ML SYR IV PRN; +REGADENOSON 0.4 MG/5 ML SYR (LEXISCAN) IV ONE
[2018-11-08 10:50] VITALS: BP 132/82
--- NOTE | 2018-11-08 10:50 | Cardiology Stress Test Report ---
Stress Test Report Type of NM Stress Test: Test Type: LEXISCAN 0.4MG/5ML Date of Procedure/Referring: Date of Procedure: Nov 07, 2018 PCP Dorene Paul MD Admitting Physician Rose Mary Smith DO Indications: Paroxysmal atrial fibrillation Baseline Heart Rate: 57 Baseline Blood Pressure: Blood Pressure Systolic: 132 Blood Pressure Diastolic: 82 Baseline EKG: Baseline EKG: sinus rhythm Summary & Conclusion: Summary: The patient was brought to the stress lab after informed consent was taken. Stress test was performed according to the Lexiscan protocol. 0.4 mg of IV Lexiscan was given. Low-grade exercise was performed. Baseline EKG showed sinus rhythm at 57 BPM. Initial blood pressure was 132/82 mmHg. Maximum heart rate was 65 bpm and blood pressure 149/77 mmHg. Patient did not have any chest pain, arrhythmias or ST segment changes during the stress test. 10.19 mCi of Myoview were given for rest imaging and 30.8 mCi of Myoview given for stress imaging. Transient ischemic dilatation score 1.09, EF 50 percent. Normal wall motion. Normal myocardial perfusion imaging during rest and stress. Conclusion: Pharmacological stress test was negative for ischemia. Normal LV function with no wall motion abnormalities. Normal myocardial perfusion imaging during rest and stress. Dorene PAUL MD Nov 08, 2018 10:50
== END ==
LOC: CARD 07:45
PROVIDERS: ATTEND Internal Medicine Interventional Cardiology
DX: I48.0 Paroxysmal atrial fibrillation (principal); I10 Essential (primary) hypertension; E11.9 Type 2 diabetes mellitus without complications; E78.2 Mixed hyperlipidemia
CPT/HCPCS: 78452; 93017

== ENCOUNTER 2019-04-30 09:14 | Outpatient (RCR) | payer MEDICARE, OTHER ==
[~2019-04-30 09:14] MED LIST changes: -CATHETER FLUSH 10 ML SYR IV PRN; +DILT-28 PO; -DILT180C90 PO; -LISI1TAB10 PO; +LISI1TAB26 PO; -REGADENOSON 0.4 MG/5 ML SYR (LEXISCAN) IV ONE; +SIMV40TA25 PO; -SIMV40TA4 PO
== END 2019-06-10 10:58 | disposition home or self-care (01) ==
PROVIDERS: ATTEND Internal Medicine
DX: M54.5 Low back pain (principal); M25.511 Pain in right shoulder; M25.512 Pain in left shoulder; E11.9 Type 2 diabetes mellitus without complications; I51.9 Heart disease, unspecified; Z79.4 Long term (current) use of insulin

== ENCOUNTER 2019-10-09 05:33 | Outpatient (RCR) | payer MEDICARE, OTHER ==
[~2019-10-09] VITALS: Ht 180 cm; Wt 113.0 kg
== END 2019-10-09 12:30 | disposition home or self-care (01) ==
LOC: PREOP 05:33
PROVIDERS: ATTEND Surgery
DX: Z01.818 Encounter for other preprocedural examination (principal); Z86.010 Personal history of colon polyps; Z20.828 Contact with and (suspected) exposure to other viral communicable diseases
CPT/HCPCS: 87635

== ENCOUNTER 2019-10-13 06:36 | Day surgery (SDC) | payer MEDICARE, OTHER ==
[2019-10-13] VITALS (7 sets, daily range): BP systolic 101–118; BP diastolic 61–72
[~2019-10-13] VITALS: Ht 180 cm; Wt 113.0 kg
--- OUTSIDE RECORDS SUMMARY | 2019-10-13 06:50 | XMS REPORT | Continuity of Care Document ---
Author Organization Unknown Address Unknown Phone Unavailable Allergies Active Description Code Type Severity Reaction Onset Reported/Identified Relationship to Patient Clinical Status Yes ATORVASTATIN MODERATE OTHER Yes shellfish derived [id number] Drug Allergy Unknown N/A 05/09/2018 Yes atorvastatin [id number] Drug Allergy Severe Joint Pain 10/08/2019 Yes shellfish derived [id number] Drug Allergy Mild NAUSEA 10/08/2019 Medications Medication Packaging Start Date St op Date Route Dosage Sig NORMAL SALINE 500CC IV BAG I NJ 0.9 % (NS 500CC IV BAG) ml 08/08/2017 08/08/2017 ONCE&0830 DILTIAZEM XR CAP 300 MG (CARDIZEM CD) MG 08/08/2017 08/14/2017 Daily&0900 METFORMIN TAB 850 MG (GLUCOPHAGE) Dose(s) 08/08/2017 08/14/2017 Daily&0900 ASPIRIN ENTERIC COATED TAB 8 1 MG (BABY ASPIRIN EC) Dose(s) 08/08/2017 08/14/2017 Daily&0900 APIXABAN TAB 5 MG (ELIQUIS) MG 08/08/2017 08/14/2017 BID&0900,2100 POTASSIUM CHLORIDE TAB 20 MEQ (K-DUR) MEQ 08/08/2017 08/14/2017 Daily&0800 FUROSEMIDE VIAL INJ 40 MG (LASIX VIAL) MG 08/08/2017 08/14/2017 Daily&0900 METFORMIN TAB 850 MG (GLUCOPHAGE) Dose(s) 08/08/2017 08/11/2017 TID&0400,1200,2000 NORMAL SALINE 50CC IV BAG IN J (NS 50CC MINI-BAG) ml 08/08/2017 08/14/2017 Daily&0900,1200 CEFTRIAXONE PREMIX IV BAG IV 1 GM/50CC (ROCEPHIN PREMIX IV BAG) GM 08/08/2017 08/14/2017 Daily&1200 IPRATROPIUM/ALBUTEROL INH SO LN (DUO-NEB INH SOLN) MLS 08/08/2017 08/18/2017 QID&0015,0615,1215,1815 AZITHROMYCIN TAB 500 MG (ZITHROMAX) MG 08/08/2017 08/12/2017 Daily&0900 LEVALBUTEROL LIQ 1.25 MG/3ML (XOPENEX) MG 08/08/2017 08/15/2017 PRN QID IPRATROPIUM/ALBUTEROL INH SO LN (DUO-NEB INH SOLN) MLS 08/08/2017 08/18/2017 QID&0600,1100,1600,2100 GUAIFENESIN TAB 600 MG (MUCINEX) MG 08/08/2017 08/15/2017 Q12H&0600,1800 POTASSIUM CHLORIDE TAB 20 MEQ (K-DUR) MEQ 08/08/2017 08/08/2017 ONCE&1800 METFORMIN TAB 850 MG (GLUCOPHAGE) MG 08/08/2017 08/08/2017 ONCE&2000 POTASSIUM CHLORIDE TAB 20 MEQ (K-DUR) MEQ 08/08/2017 08/08/2017 ONCE&2000 SIMVASTATIN TAB 40 MG (ZOCOR) Dose(s) 08/08/2017 08/14/2017 QPM&2000 INSULIN REGULAR HUMAN INJ 10 0 UNITS/CC (HUMULIN R / NOVOLIN R INSULIN) UNITS 08/08/2017 08/17/2017 QHS&2100 DIPHENHYDRAMINE CAP 25 MG (BENADRYL) MG 08/08/2017 08/08/2017 PRN ONCE METFORMIN TAB 850 MG (GLUCOPHAGE) MG 08/09/2017 08/12/2017 TID&0600,1200,2000 AZITHROMYCIN TAB 500 MG (ZITHROMAX) MG 08/09/2017 08/13/2017 Daily&0900 METFORMIN TAB 850 MG (GLUCOPHAGE) Dose(s) 08/09/2017 08/14/2017 Daily&0900 ASPIRIN ENTERIC COATED TAB 8 1 MG (BABY ASPIRIN EC) Dose(s) 08/09/2017 08/14/2017 Daily&0900 METFORMIN TAB 850 MG (GLUCOPHAGE) Dose(s) 08/09/2017 08/16/2017 TID&0630,1130,1630 METFORMIN TAB 850 MG (GLUCOPHAGE) Dose(s) 08/09/2017 08/16/2017 TID&0700,1200,1730 CEFTRIAXONE PREMIX IV BAG IV 1 GM/50CC (ROCEPHIN PREMIX IV BAG) GM 08/09/2017 08/15/2017 Daily&1200 Normal SALINE 0.9 % (NS 100cc) (plain bag) ml 12/02/2017 12/02/2017 EVERY 24 Hour&2120 DILTIAZEM BOLUS VIAL INJ 25 MG/5CC (CARDIZEM BOLUS VIAL) MG 12/02/2017 12/02/2017 ONCE&2120 NORMAL SALINE 1000CC IV BAG INJ 0.9 % (NS 1000CC IV BAG) ml 12/02/2017 12/02/2017 ONCE&2120 APIXABAN TAB 5 MG (ELIQUIS) MG 12/02/2017 12/02/2017 ONCE&2132 APIXABAN TAB 5 MG (ELIQUIS) MG 12/02/2017 12/02/2017 ONCE&213 Problems Date Dx Coded Attending Type Code Diagnosis Diagnosed By 02/15/1057 LETHA RAY DO, Ot E11.9 TYPE 2 DIABETES MELLITUS WITHOUT COMPLIC 02/15/1057 LETHA RAY DO Ot I51.9 HEART DISEASE, UNSPECIFIED 02/15/1057 LETHA RAY DO Ot M25.51 1 PAIN IN RIGHT SHOULDER 02/15/1057 LETHA RAY DO Ot M25.51 2 PAIN IN LEFT SHOULDER 02/15/1057 LETHA RAY DO Ot M54.5 LOW BACK PAIN 02/15/1057 LETHA RAY DO Ot Z79.4 PROPERTIES SUPERVISOR (CURRENT) USE OF INSULIN 08/09/2017 Cedric Galvan 250.00 DIABETES MELLITUS WITHOUT MENTION OF COMPLICATION, TYPE II OR UNSPECIFIED TYPE, NOT STATED UNCONTROLLED 08/09/2017 Cedric Galvan 401.0 MALIGNANT ESSENTIAL HYPERTENSION 08/09/2017 Cedric Galvan 427.31 ATRIAL FIBRILLATION 08/09/2017 Cedric Galvan E11.9 TYPE 2 DIABETES MELLITUS WITHOUT COMPLICATIONS 08/09/2017 Cedric Galvan I10 ESSENTIAL (PRIMARY) HYPERTENSION 08/09/2017 Cedric Galvan I48.91 UNSPECIFIED ATRIAL FIBRILLATION 12/02/2017 Daniel Flowers 250.00 DIABETES MELLITUS WITHOUT MENTION OF COMPLICATION, TYPE II OR UNSPECIFIED TYPE, NOT STATED UNCONTROLLED 12/02/2017 Daniel Flowers 278.00 OBESITY, UNSPECIFIED 12/02/2017 Daniel Flowers 401.0 MALIGNANT ESSENTIAL HYPERTENSION 12/02/2017 Daniel Flowers 427.31 ATRIAL FIBRILLATION 12/02/2017 Daniel Flowers E11.9 TYPE 2 DIABETES MELLITUS WITHOUT COMPLICATIONS 12/02/2017 Daniel Flowers E66.9 OBESITY, UNSPECIFIED 12/02/2017 Daniel Flowers I10 ESSENTIAL (PRIMARY) HYPERTENSION 12/02/2017 Daniel Flowers I48.91 UNSPECIFIED ATRIAL FIBRILLATION 12/04/2017 RAY DO, LETHA Ot E11.9 TYPE 2 DIABETES MELLITUS WITHOUT COMPLIC 12/04/2017 RAY DO, LETHA Ot E78.2 MIXED HYPERLIPIDEMIA 12/04/2017 RAY DO, LETHA Ot F41.9 ANXIETY DISORDER, UNSPECIFIED 12/04/2017 RAY DO, LETHA Ot G47.33 OBSTRUCTIVE SLEEP APNEA (ADULT) (PEDIATR 12/04/2017 RAY DO, LETHA Ot I48.0 PAROXYSMAL ATRIAL FIBRILLATION 12/04/2017 RAY DO, LETHA Ot I70.0 ATHEROSCLEROSIS OF AORTA 12/04/2017 RAY DO, LETHA Ot K59.01 SLOW TRANSIT CONSTIPATION 12/04/2017 RAY DO, LETHA Ot M19.91 PRIMARY OSTEOARTHRITIS, UNSPECIFIED SITE 12/04/2017 RAY DO, LETHA Ot N42.9 DISORDER OF PROSTATE, UNSPECIFIED 12/04/2017 RAY DO, LETHA Ot Z87.89 1 PERSONAL HISTORY OF NICOTINE DEPENDENCE 12/04/2017 FLOR ROJAS, LETHA Ot Z91.12 0 PT INTENTL UNDRDOSE OF MEDS REGIMEN DUE 05/09/2018 VALDEMAR MOLINA, Dorene HOGAN Ot E11 .9 TYPE 2 DIABETES MELLITUS WITHOUT COMPLIC 05/09/2018 VALDEMAR MOLINA, Dorene HOGAN Ot E78 .5 HYPERLIPIDEMIA, UNSPECIFIED 05/09/2018 Dorene ALDRICH MD, Ot G47.33 OBSTRUCTIVE SLEEP APNEA (ADULT) (PEDIATR 05/09/2018 Dorene ALDRICH MD Ot I10 ESSENTIAL (PRIMARY) HYPERTENSION 05/09/2018 Dorene ALDRICH MD Ot I48 .0 PAROXYSMAL ATRIAL FIBRILLATION 05/09/2018 Dorene ALDRICH MD Ot R53.83 OTHER FATIGUE 05/09/2018 Dorene ALDRICH MD, Ot Z79.01 PROPERTIES SUPERVISOR (CURRENT) USE OF ANTICOAGULANT 05/09/2018 Dorene ALDRICH MD, Ot Z79 .4 PROPERTIES SUPERVISOR (CURRENT) USE OF INSULIN 05/09/2018 Dorene ALDRICH MD Ot Z79.899 OTHER MCC (CURRENT) DRUG THERAPY 05/09/2018 Dorene ALDRICH MD, Ot Z87.891 PERSONAL HISTORY OF NICOTINE DEPENDENCE 05/10/2018 Dorene ALDRICH MD Ot E11 .9 TYPE 2 DIABETES MELLITUS WITHOUT COMPLIC 05/10/2018 Dorene ALDRICH MD, Ot E78 .5 HYPERLIPIDEMIA, UNSPECIFIED 05/10/2018 Dorene ALDRICH MD Ot G47.33 OBSTRUCTIVE SLEEP APNEA (ADULT) (PEDIATR 05/10/2018 Dorene ALDRICH MD Ot I10 ESSENTIAL (PRIMARY) HYPERTENSION 05/10/2018 Dorene ALDRICH MD Ot I48 .0 PAROXYSMAL ATRIAL FIBRILLATION 05/10/2018 Dorene ALDRICH MD Ot R53.83 OTHER FATIGUE 05/10/2018 Dorene ALDRICH MD Ot Z79.01 MCC (CURRENT) USE OF ANTICOAGULANT 05/10/2018 Dorene ALDRICH MD Ot Z79 .4 MCC (CURRENT) USE OF INSULIN 05/10/2018 Dorene ALDRICH MD Ot Z79.899 OTHER MCC (CURRENT) DRUG THERAPY 05/10/2018 Dorene ALDRICH MD Ot Z87.891 PERSONAL HISTORY OF NICOTINE DEPENDENCE 05/10/2018 Dorene ALDRICH MD Ot I48 .1 PERSISTENT ATRIAL FIBRILLATION 07/14/2018 Dorene ALDRICH MD Ot I48 .1 PERSISTENT ATRIAL FIBRILLATION 07/15/2018 Dorene ALDRICH MD Ot I48 .1 PERSISTENT ATRIAL FIBRILLATION 08/23/2018 RAY DO, LETHA Ot M54.5 LOW BACK PAIN 08/28/2018 RAY DO, LETHA Ot M54.5 LOW BACK PAIN 10/10/2018 RAY DO LETHA Ot M54.5 LOW BACK PAIN 11/11/2018 Dorene ALDRICH MD Ot E11 .9 TYPE 2 DIABETES MELLITUS WITHOUT COMPLIC 11/11/2018 Dorene ALDRICH MD Ot E78 .2 MIXED HYPERLIPIDEMIA 11/11/2018 Dorene ALDRICH MD Ot I10 ESSENTIAL (PRIMARY) HYPERTENSION 11/11/2018 VALDEMAR MOLINA, M EDISON Ot I48 .0 PAROXYSMAL ATRIAL FIBRILLATION 11/13/2018 Dorene ALDRICH MD Ot E11 .9 TYPE 2 DIABETES MELLITUS WITHOUT COMPLIC 11/13/2018 Dorene ALDRICH MD Ot E78 .2 MIXED HYPERLIPIDEMIA 11/13/2018 Dorene ALDRICH MD Ot I10 ESSENTIAL (PRIMARY) HYPERTENSION 11/13/2018 VALDEMAR MOLINA, Dorene HOGAN Ot I48 .0 PAROXYSMAL ATRIAL FIBRILLATION 11/18/2018 RAY DO, LETHA Ot M54.5 LOW BACK PAIN 11/28/2018 RAY DO, LETHA Ot M54.5 LOW BACK PAIN 12/04/2018 Dorene ALDRICH MD Ot E11 .9 TYPE 2 DIABETES MELLITUS WITHOUT COMPLIC 12/04/2018 Dorene ALDRICH MD Ot E78 .2 MIXED HYPERLIPIDEMIA 12/04/2018 Doerne ALDRICH MD Ot I10 ESSENTIAL (PRIMARY) HYPERTENSION 12/04/2018 Dorene ALDRICH MD Ot I48 .0 PAROXYSMAL ATRIAL FIBRILLATION 05/13/2019 RAY DO, LETHA Ot E11.9 TYPE 2 DIABETES MELLITUS WITHOUT COMPLIC 05/13/2019 RAY DO, LETHA Ot I51.9 HEART DISEASE, UNSPECIFIED 05/13/2019 RAY DO, LETHA Ot M25.51 1 PAIN IN RIGHT SHOULDER 05/13/2019 RAY DO, LETHA Ot M25.51 2 PAIN IN LEFT SHOULDER 05/13/2019 RAY DO, LETHA Ot M54.5 LOW BACK PAIN 05/13/2019 RAY DO, LETHA Ot Z79.4 MCC (CURRENT) USE OF INSULIN 10/08/2019 Dorene ALDRICH MD Ot I48 .1 PERSISTENT ATRIAL FIBRILLATION Procedures Code Description Performed By Per formed On [id number] RE STORATION OF CARDIAC RHYTHM, SINGLE 12/03/2017 [id number] RE STORATION OF CARDIAC RHYTHM, SINGLE 12/04/2017 Results Test Result Range Magnesium - 08/08/17 07:50 Mg++ 2.1 mg/dL 1.6-2.6 Urinalysis - 08/08/17 08:02 Icotest N/A Negative Urine-Appearance Clear Clear Urine-Bacteria Trace Urine-Bilirubin Negative Negative Urine-Blood Negative Negative Urine-Color Yellow Colorless-[place] Urine-Epithelial Cells 0-5/HPF Urine-Glucose Negative Negative Urine-Ketones Negative Negative Urine-Leukocytes Negative Negative Urine-Nitrite Negative Negative Urine-pH 5.0 5-8.5 Urine-Protein Negative Negative Urine-RBC Negative Urine-Specific [place] 1.015 1.000-1 .030 Urine-WBC Negative Urobilinogen 0.2 E.U./dL 0.2-1.0 Cardiac Panel - 08/08/17 10:33 CK 171 U/L 26-174 CK-MB 6.4 ng/ml 0.0-9.2 Myoglobin 82.2 ng/ml 1.6-154.9 Troponin <0.020 ng/mL 0.0-0.4 Blood Culture - 08/08/17 12:02 PRELIM CULTURE RESULTS Blood Culture Negativ e, No Growth Day 1 MEDIA PLATED C41 CULTURE SOURCE right ac Blood Culture - 08/08/17 12:02 PRELIM CULTURE RESULTS Blood Culture Negativ e, No Growth Day 1 MEDIA PLATED C47 CULTURE SOURCE left AC Blood Culture - 08/08/17 12:02 PRELIM CULTURE RESULTS Blood Culture Negativ e, No Growth Day 1 FINAL CULTURE RESULTS Blood Culture Negative , No Growth Day 5 MEDIA PLATED C41 CULTURE SOURCE right ac Blood Culture - 08/08/17 12:02 PRELIM CULTURE RESULTS Blood Culture Negativ e, No Growth Day 1 FINAL CULTURE RESULTS Blood Culture Negative , No Growth Day 5 MEDIA PLATED C47 CULTURE SOURCE left AC Cardiac Panel - 08/08/17 19:43 CK 143 U/L 26-174 CK-MB 4.0 ng/ml 0.0-9.2 Myoglobin 51.2 ng/ml 1.6-154.9 Troponin <0.020 ng/mL 0.0-0.4 Comprehensive Metabolic Panel - 12/02/17 21:20 Albumin 4.1 g/dL 3.6-5.1 ALP 67 U/L 35-130 ALT 17 U/L 6-45 Anion Gap 16 6-14 AST 16 U/L 2-40 BUN 28 mg/dL 5-25 Calcium 9.2 mg/dL 8.3-10.4 Chloride 106 mmol/L 95-114 CO2 22 mEq/L 22-33 Creat 1.09 mg/dL 0.50-1.50 eGFR 67 mL/min/1.73m2 >59 Globulin 2.0 g/dL 2.3-3.5 Glucose 120 mg/dL 70-110 Osmo 295 280-295 Potassium 4.3 mmol/L 3.5-5.3 Sodium 140 mmol/L 134-148 TBil 0.3 mg/dL 0.2-1.2 TP 6.1 g/dL 6.0-8.3 Complete blood count (CBC) with automate d white blood cell (WBC) differential - 12/03/17 02:55 Blood leukocytes automated count (number/volume) 5.6 10*3/uL 4.3-11.0 Blood erythrocytes automated count (number/volume) 4.54 10*6/uL 4.35-5.85 Venous blood hemoglobin measurement (mass/volume) 13.3 g/dL 13.3-17.7 Blood hematocrit (volume fraction) 39 % 40-54 Automated erythrocyte mean corpuscular volume 86 [ foz_us] 80-99 Automated erythrocyte mean corpuscular h emoglobin (mass per erythrocyte) 29 pg 25-34 Automated erythrocyte mean corpuscular h emoglobin concentration measurement (mass/volume) 34 g/dL 32-36 Automated erythrocyte distribution width ratio 14. 5 % 10.0- 14.5 Automated blood platelet count (count/volume) 258 10*3/uL 130-400 Automated blood platelet mean volume measurement 10.8 [foz_us] 7.4-10.4 Automated blood neutrophils/100 leukocytes 63 % 42-75 Automated blood lymphocytes/100 leukocytes 21 % 12-44 Blood monocytes/100 leukocytes 12 % 0-12 Automated blood eosinophils/100 leukocytes 3 % 0-10 Automated blood basophils/100 leukocytes 1 % 0-10 Blood neutrophils automated count (number/volume) 3.5 10*3 1.8-7.8 Blood lymphocytes automated count (number/volume) 1.1 10*3 1.0-4.0 Blood monocytes automated count (number/volume) 0. 7 10*3 0.0-1.0 Automated eosinophil count 0.2 10*3/uL 0 .0-0.3 Automated blood basophil count (count/volume) 0.0 10*3/uL 0.0-0.1 PT panel in platelet poor plasma by coag ulation assay - 12/03/17 02:55 Prothrombin time (PT) in platelet poor plasma by coagu lation assay 13.9 s 12.2-14.7 INR in platelet poor plasma or blood by coagulation as say 1.1 0.8-1.4 Whole blood basic metabolic panel - 11/17 10/03 02:55 Serum or plasma sodium measurement (moles/volume) 139 mmol/L 135-145 Serum or plasma potassium measurement (moles/volume) 3.8 mmol/L 3.6-5.0 Serum or plasma chloride measurement (moles/volume) 106 mmol/L 98-107 Carbon dioxide 22 mmol/L 21-32 Serum or plasma anion gap determination (moles/volume) 11 mmol/L 5-14 Serum or plasma urea nitrogen measurement (mass/volume ) 26 mg/dL 7-18 Serum or plasma creatinine measurement (mass/volume) 0.86 mg/dL 0.60-1.30 Serum or plasma urea nitrogen/creatinine mass ratio 30 NRG Serum or plasma creatinine measurement w ith calculation of estimated glomerular filtration rate > NRG Serum or plasma glucose measurement (mass/volume) 95 mg/dL 70-105 Serum or plasma calcium measurement (mass/volume) 8.8 mg/dL 8.5-10.1 Complete blood count (CBC) with automate d white blood cell (WBC) differential - 12/03/17 06:14 Blood leukocytes automated count (number/volume) 5.7 10*3/uL 4.3-11.0 Blood erythrocytes automated count (number/volume) 4.54 10*6/uL 4.35-5.85 Venous blood hemoglobin measurement (mass/volume) 13.2 g/dL 13.3-17.7 Blood hematocrit (volume fraction) 39 % 40-54 Automated erythrocyte mean corpuscular volume 85 [ foz_us] 80-99 Automated erythrocyte mean corpuscular h emoglobin (mass per erythrocyte) 29 pg 25-34 Automated erythrocyte mean corpuscular h emoglobin concentration measurement (mass/volume) 34 g/dL 32-36 Automated erythrocyte distribution width ratio 14. 5 % 10.0- 14.5 Automated blood platelet count (count/volume) 261 10*3/uL 130-400 Automated blood platelet mean volume measurement 10.3 [foz_us] 7.4-10.4 Automated blood neutrophils/100 leukocytes 54 % 42-75 Automated blood lymphocytes/100 leukocytes 30 % 12-44 Blood monocytes/100 leukocytes 11 % 0-12 Automated blood eosinophils/100 leukocytes 4 % 0-10 Automated blood basophils/100 leukocytes 1 % 0-10 Blood neutrophils automated count (number/volume) 3.1 10*3 1.8-7.8 Blood lymphocytes automated count (number/volume) 1.7 10*3 1.0-4.0 Blood monocytes automated count (number/volume) 0. 7 10*3 0.0-1.0 Automated eosinophil count 0.2 10*3/uL 0 .0-0.3 Automated blood basophil count (count/volume) 0.0 10*3/uL 0.0-0.1 Whole blood basic metabolic panel - 11/17 10/03 06:14 Serum or plasma sodium measurement (moles/volume) 139 mmol/L 135-145 Serum or plasma potassium measurement (moles/volume) 4.1 mmol/L 3.6-5.0 Serum or plasma chloride measurement (moles/volume) 108 mmol/L 98-107 Carbon dioxide 23 mmol/L 21-32 Serum or plasma anion gap determination (moles/volume) 8 mmol/L 5-14 Serum or plasma urea nitrogen measurement (mass/volume ) 23 mg/dL 7-18 Serum or plasma creatinine measurement (mass/volume) 0.76 mg/dL 0.60-1.30 Serum or plasma urea nitrogen/creatinine mass ratio 30 NRG Serum or plasma creatinine measurement w ith calculation of estimated glomerular filtration rate > NRG Serum or plasma glucose measurement (mass/volume) 77 mg/dL 70-105 Serum or plasma calcium measurement (mass/volume) 8.8 mg/dL 8.5-10.1 Serum or plasma phosphate measurement (m ass/volume) - 12/03/17 06:14 Serum or plasma phosphate measurement (mass/volume) 3.2 mg/dL 2.3-4.7 Magnesium - 12/03/17 06:14 Magnesium 2.1 mg/dL 1.8-2.4 Capillary blood glucose measurement by g lucometer (mass/volume) - 12/03/17 11:35 Capillary blood glucose measurement by glucometer (mas s/volume) 94 mg/dL 70-110 Capillary blood glucose measurement by g lucometer (mass/volume) - 12/03/17 18:44 Capillary blood glucose measurement by glucometer (mas s/volume) 257 mg/dL 70-110 Capillary blood glucose measurement by g lucometer (mass/volume) - 12/03/17 21:53 Capillary blood glucose measurement by glucometer (mas s/volume) 237 mg/dL 70-110 Complete blood count (CBC) with automate d white blood cell (WBC) differential - 12/04/17 03:40 Blood leukocytes automated count (number/volume) 4.7 10*3/uL 4.3-11.0 Blood erythrocytes automated count (number/volume) 4.20 10*6/uL 4.35-5.85 Venous blood hemoglobin measurement (mass/volume) 12.5 g/dL 13.3-17.7 Blood hematocrit (volume fraction) 36 % 40-54 Automated erythrocyte mean corpuscular volume 85 [ foz_us] 80-99 Automated erythrocyte mean corpuscular h emoglobin (mass per erythrocyte) 30 pg 25-34 Automated erythrocyte mean corpuscular h emoglobin concentration measurement (mass/volume) 35 g/dL 32-36 Automated erythrocyte distribution width ratio 14. 1 % 10.0- 14.5 Automated blood platelet count (count/volume) 218 10*3/uL 130-400 Automated blood platelet mean volume measurement 10.8 [foz_us] 7.4-10.4 Automated blood neutrophils/100 leukocytes 46 % 42-75 Automated blood lymphocytes/100 leukocytes 35 % 12-44 Blood monocytes/100 leukocytes 13 % 0-12 Automated blood eosinophils/100 leukocytes 5 % 0-10 Automated blood basophils/100 leukocytes 1 % 0-10 Blood neutrophils automated count (number/volume) 2.2 10*3 1.8-7.8 Blood lymphocytes automated count (number/volume) 1.7 10*3 1.0-4.0 Blood monocytes automated count (number/volume) 0. 6 10*3 0.0-1.0 Automated eosinophil count 0.2 10*3/uL 0 .0-0.3 Automated blood basophil count (count/volume) 0.1 10*3/uL 0.0-0.1 Whole blood basic metabolic panel - 11/17 11/03 03:40 Serum or plasma sodium measurement (moles/volume) 139 mmol/L 135-145 Serum or plasma potassium measurement (moles/volume) 4.2 mmol/L 3.6-5.0 Serum or plasma chloride measurement (moles/volume) 108 mmol/L 98-107 Carbon dioxide 23 mmol/L 21-32 Serum or plasma anion gap determination (moles/volume) 8 mmol/L 5-14 Serum or plasma urea nitrogen measurement (mass/volume ) 14 mg/dL 7-18 Serum or plasma creatinine measurement (mass/volume) 0.72 mg/dL 0.60-1.30 Serum or plasma urea nitrogen/creatinine mass ratio 19 NRG Serum or plasma creatinine measurement w ith calculation of estimated glomerular filtration rate > NRG Serum or plasma glucose measurement (mass/volume) 102 mg/dL 70-105 Serum or plasma calcium measurement (mass/volume) 8.7 mg/dL 8.5-10.1 Serum or plasma phosphate measurement (m ass/volume) - 12/04/17 03:40 Serum or plasma phosphate measurement (mass/volume) 3.0 mg/dL 2.3-4.7 Magnesium - 12/04/17 03:40 Magnesium 1.8 mg/dL 1.8-2.4 Capillary blood glucose measurement by g lucometer (mass/volume) - 12/04/17 08:43 Capillary blood glucose measurement by glucometer (mas s/volume) 127 mg/dL 70-110 Encounters ACCT No. Visit Date/Time Discharge Status Pt. Type Provider Facility Loc./Unit Complaint [id number] 12/02/2017 21:04:00 12/02/2017 22:46: 00 DIS Outpatient Daniel Flowers [id number] 08/20/2017 09:56:00 08/20/2017 23:59: 00 DIS Outpatient Cedric Galvan [id number] 08/08/2017 07:59:00 08/09/2017 11:55: 00 DIS Outpatient Cedric Galvan [facility] ICU [id number] 08/08/2017 10:00:12 Document Registration [id number] 10/09/2019 05:33:00 12:30:00 DIS Outpatient SHERLEY PORRAS DO [facility] PREOP HISTORY OF POLYPS [id number] 04/30/2019 09:14:00 03/24/2 020 10:58:00 DIS Outpatient FLOR ROJAS LETHA [facility] REHAB BILATERAL SHOULDER AND BACK PAIN [id number] 11/19/2018 00:14:00 23:59:59 CLS Preadmit LETHA RAY DO [facility] REHAB LBP [id number] 09/16/2018 11:05:00 00:01:00 DIS Outpatient FLOR ROJAS LETHA [facility] REHAB LBP [id number] 11/07/2018 07:45:00 23:59:59 CLS Outpatient Dorene ALDRICH MD [facility] CARD PAF [id number] 07/15/2018 09:30:00 23:59:59 CLS Preadmit Dorene ALDRICH MD [facility] CARD AFIB [id number] 05/09/2018 10:00:00 00:01:00 DIS Outpatient Dorene ALDRICH MD [facility] CARD AFIB [id number] 05/09/2018 07:42:00 10:19:00 DIS Outpatient Dorene ALDRICH MD [facility] CATH AF SURVEILLANCE [id number] 12/02/2017 23:16:00 14:32:00 DIS Inpatient LETHA RAY DO [facility] ICU AFIB W/RVR [id number] 10/13/2019 08:00:00 P EN Preadmit SHERLEY PORRAS DO [facility] ENDO HISTORY OF POLYPS [id number] 08/08/2017 07:59:00 Document Registration
[2019-10-13] MEDS ORDERED: LACTATED RINGERS 1,000 ML IV STA (06:53)
[2019-10-13] MEDS ORDERED: LACTATED RINGERS 1,000 ML IV ONE (07:12)
[2019-10-13] MEDS ORDERED: PROPOFOL INJECTION 50 ML IV ONE (07:32)
[2019-10-13] MEDS ORDERED: MIDAZOLAM 2 MG/2 ML (VERSED) VIAL ONE (07:33)
--- NOTE | 2019-10-13 08:09 | Progress Note-Pre Operative ---
Pre-Operative Progress Note H&P Reviewed The H&P was reviewed, patient examined and no changes noted. Time Seen by Provider: 08:03 Date H&P Reviewed: Oct 13, 2019 Time H&P Reviewed: 08:01 Pre-Operative Diagnosis: Hx of Polyps, Screening colonoscopy SHERLEY PORRAS DO Oct 13, 2019 08:09
--- NOTE | 2019-10-13 09:05 | Progress Note-Post Operative ---
Post-Operative Progess Note Surgeon (s)/Finishing Manager (s) Surgeon SHERLEY PORRAS DO Finishing Manager: none Pre-Operative Diagnosis Hx of Polyps, Screening colonoscopy Post-Operative Diagnosis Polyps Diverticula int hemorrhoids Procedure & Operative Findings Date of Procedure 10/13/19 Procedure Performed/Findings Colon with snare Colon with hot bx Anesthesia Type IV sedation by TESTING DIRECTOR Estimated Blood Loss Estimated blood loss (mL): scant Specimens/Packing Specimens Removed cecal polyp transverse polyp x 2 sigmoid polyp SHERLEY PORRAS DO Oct 13, 2019 09:05
--- NOTE | 2019-10-13 09:06 | Endoscopy Discharge Instruct ---
Endo Procedure/Findings Findings 1.: Polyp 2.: Diverticulosis 3.: Internal Hemorrhoids Discharge Instructions - Activity: You might feel a little sleepy until tomorrow. This is due to the medicine you received to relax you. Until tomorrow, you should: NOT drive a car, operate machinery or power tools. NOT drink any alcoholic beverages. NOT make any important decisions or sign importortant papers. Do not return to work until tomorrow, unless otherwise instructed. Resume previous activities tomorrow. Diet: Start by taking liquids. If you tolerate liquids, advance to solid food. make an appointment for one week 1.: Colonscopy in 3 years Notify Physician - If you experience excessive bleeding, unusual abdominal pain, fever, or chest pain, contact your doctor immediately. SHERLEY PORRAS DO Oct 13, 2019 09:06
--- NOTE | 2019-10-13 23:08 | OPERATIVE REPORT ---
DATE OF SERVICE: 10/13/2019 PREOPERATIVE DIAGNOSES: History of polyps, screening colonoscopy. POSTOPERATIVE DIAGNOSES: Colon polyps, diverticula, internal hemorrhoids. PROCEDURE: 1. Colonoscopy with snare polypectomy. 2. Colonoscopy with hot biopsy. SURGEON: Zi Ziegler DO BIOLOGICS SPECIALIST: None. ANESTHESIA: IV sedation by the WELFARE ADMINISTRATOR. SPECIMEN: Cecal polyp transverse polyps x2 and sigmoid polyp. BLOOD LOSS: Scant. FLUIDS: Per anesthesia. POSTOPERATIVE CONDITION: Stable. INDICATION FOR PROCEDURE: The patient is a 69-year-old male who has not had a colonoscopy in over 18 years and when he was 50, he had colon polyps. This is a screening colonoscopy, but he has a history of polyps. FINDINGS: The patient had a flat polyp in the cecum and then a flat polyp in the transverse colon. Both of these were taken with hot biopsy, but then he had a larger polyp in the transverse colon and then a large one in the sigmoid colon, both of these were snared. PROCEDURE NOTE: After informed consent was obtained, the patient was brought to the endoscopy suite, placed in bed in left lateral decubitus position. He was administered IV sedation by the WELFARE ADMINISTRATOR who then monitored his vitals the entire time, heart rate, blood pressure, pulse ox and the scope was inserted all the way and noted some diverticula, took pictures, able to get all the way to cecum, took a picture of appendiceal orifice and then just outside the cecum, saw a flat polyp, I elected to do a hot biopsy, removed this in one bite and then slowly withdrew the scope insufflating to look circumferentially at the olguin looking at the cecum, up into the ascending colon and then to the hepatic flexure and into the transverse colon. In the transverse colon, saw another flat polyp, did another hot biopsy, able to take this in 2 pieces to remove the whole polyp, then just up towards the splenic flexure. In the transverse colon, saw another large colon polyp. I elected to remove this completely, so used a snare polypectomy using hot snare to remove this, able to remove this suction this up and then continued down to the splenic flexure, then into the descending colon and then into the sigmoid. In the sigmoid colon, saw another large polyp, did another snare polypectomy of this. Again, noted diverticula throughout here and then down into the rectum, retroflexed in the rectal vault, saw some minimal internal hemorrhoids, took a picture of these and then removed the scope. The patient tolerated the procedure. He was recovered in endoscopy suite. Job ID: [id number] DocumentID: [id number] Dictated Date: 10/13/2019 22:27:35 Device Engineer Date: 10/13/2019 23:08:15 Dictated By: ZI ZIEGLER DO
== END 2019-10-13 09:40 | disposition home or self-care (01) ==
LOC: ENDO 06:36
PROVIDERS: ATTEND Surgery
DX: Z12.11 Encounter for screening for malignant neoplasm of colon (principal); D12.0 Benign neoplasm of cecum; D12.3 Benign neoplasm of transverse colon; K63.5 Polyp of colon; K57.30 Diverticulosis of large intestine without perforation or abscess without bleeding; I10 Essential (primary) hypertension; I48.91 Unspecified atrial fibrillation; E11.9 Type 2 diabetes mellitus without complications; F41.9 Anxiety disorder, unspecified; F32.9 Major depressive disorder, single episode, unspecified; E78.2 Mixed hyperlipidemia; G47.33 Obstructive sleep apnea (adult) (pediatric); I48.0 Paroxysmal atrial fibrillation; Z79.899 Other long term (current) drug therapy; Z79.84 Long term (current) use of oral hypoglycemic drugs; Z91.013 Allergy to seafood; Z88.8 Allergy status to other drugs, medicaments and biological substances; Z86.010 Personal history of colon polyps; Z87.891 Personal history of nicotine dependence
CPT/HCPCS: 82962

== ENCOUNTER 2019-12-10 09:28 | Outpatient (RCR) | payer MEDICARE, OTHER ==
[~2019-12-10 09:28] MED LIST changes: +ASPI-1238 PO; -ASPI-983 PO
== END 2020-01-27 11:21 | disposition home or self-care (01) ==
PROVIDERS: ATTEND Internal Medicine
DX: M54.5 Low back pain (principal); G89.29 Other chronic pain; E11.9 Type 2 diabetes mellitus without complications; Z20.828 Contact with and (suspected) exposure to other viral communicable diseases